=== PATIENT | male | born 1945 | race Caucasian/White ===

== ENCOUNTER → 2016-12-14 | Outpatient (CLI) | payer MEDICARE ==
[~2016-12-14] MED LIST: ALBI1INJ2 SQ; AMIO200T PO; AMLO10TA2 PO; ASPI-110 PO; ATOR10TA15 PO; COQ-100C2 PO; DOXY100C PO; GLIM4TAB PO; HYDR25TA5 PO; LACTTAB8 PO; LEVO125T4 PO; LOSA100T PO; METF-382 PO; METO25TA3 PO; METR-1 PO; MULT1TAB84 PO; NOVONP2 SQ; VICT18IN SQ
[2016-12-14 08:26] LABS: AUTOMATED NEUTROPHIL # 5.3 TH/MM3 (1.8-7.7); BASOPHIL # 0.1 TH/MM3 (0-0.2); BASOPHIL % 0.8 % (0.0-2.0); EOSINOPHIL # 0.2 TH/MM3 (0-0.4); EOSINOPHIL % 3.1 % (0.0-4.0); HEMATOCRIT 40.2 % (39.0-51.0); HEMO FLAGS DIFF FINAL; LYMPH % 17.4 % (9.0-44.0); LYMPHOCYTE # 1.3 TH/MM3 (1.0-4.8); MEAN CELL VOLUME 85.3 FL (80.0-100.0); MEAN CORPUSCULAR HEMOGLOBIN 29.4 PG (27.0-34.0); MEAN CORPUSCULAR HGB CONC 34.4 % (32.0-36.0); NEUT % 69.7 % (16.0-70.0); PLATELET COUNT 326 TH/MM3 (150-450); RED BLOOD COUNT 4.71 MIL/MM3 (4.50-5.90); RED CELL DISTRIBUTION WIDTH 13.1 % (11.6-17.2); WHITE BLOOD COUNT 7.7 TH/MM3 (4.0-11.0)
[2016-12-14 08:28] LABS: BLOOD, URINE NEG (NEG); COMMENT (UR) CULT NOT INDICATED; CULTURE IF INDICATED CULT NOT INDICATED; GLUCOSE,URINE 300 mg/dL (NEG); KETONE, URINE NEG (NEG); MUCUS URINE FEW /lpf (OCC); NITRITE,URINE NEG (NEG); PH, URINE 5.5 (5.0-8.5); SQUAMOUS EPITHELIAL CELL URINE <1 /hpf (0-5); URINE COLOR YELLOW (YELLW/STRAW)
[2016-12-14 08:59] LABS: ALKALINE PHOSPHATASE 91 U/L (45-117); ALT (GPT) 18 U/L (12-78); ANION GAP 9 MEQ/L (5-15); AST (GOT) 9 U/L (15-37); BLOOD UREA NITROGEN 28 MG/DL (7-18); CHLORIDE 102 MEQ/L (98-107); GLOMERULAR FILTRATION RATE 41 ML/MIN (>89); GLUCOSE,FASTING 191 MG/DL (74-99); POTASSIUM 3.3 MEQ/L (3.5-5.1); SODIUM (NA) 140 MEQ/L (136-145); TOTAL BILIRUBIN ADULT 0.4 MG/DL (0.2-1.0)
--- NOTE | 2016-12-14 09:17 | RADRPT ---
EXAM DATE/TIME: 12/14/2016 08:34 [facility] COMPARISON: CHEST PA & LAT, January 21, 2014, 0:49. INDICATIONS : Pre-op repair ventral hernia. Evaluate for pneumothorax, pneumonia, and communicable diseases. MEDICAL HISTORY : None. SURGICAL HISTORY : Stents 12 years ago. ENCOUNTER: Initial ACUITY: 1 day PAIN SCORE: 0/10 LOCATION: Bilateral chest FINDINGS: PA and lateral views of the chest demonstrate the lungs to be symmetrically aerated without evidence of mass, infiltrate or effusion. The cardiomediastinal contours are unremarkable. Osseous structure s are intact. CONCLUSION: Normal examination. Lazarus Baxter MD on December 14, 2016 at 9:15 Board Certified Radiologist. This report was verified electronically.
--- NOTE | 2016-12-15 11:43 | EKG ---
Date Performed: 12/14/2016 Time Performed: 07:55:26 PTAGE: 70 years EKG: Sinus rhythm WITH FIRST DEGREE AV BLOCK LOW QRS VOLTAGE IN PRECORDIAL LEADS INFERIOR MYOCARDIAL INFARCTION, PROBA BAIRON OLD ANTEROSEPTAL MYOCARDIAL INFARCTION, PROBABLY OLD ABNORMAL ECG PREVIOUS TRACING : 09/16/2016 15.58 DOCTOR: Lazarus Myers Interpretating Date/Time 12/15/2016 11:40:52
== END ==
LOC: CPRE 07:35
PROVIDERS: ATTEND Colon & Rectal Surgery
DX: Z01.810 Encounter for preprocedural cardiovascular examination (principal); Z01.811 Encounter for preprocedural respiratory examination; Z01.812 Encounter for preprocedural laboratory examination; K43.9 Ventral hernia without obstruction or gangrene
CPT/HCPCS: 36415; 71020; 80053; 81001; 85025; 93005

== ENCOUNTER → 2016-12-20 | Day surgery (SDC) | payer MEDICARE ==
[~2016-12-20] VITALS: Ht 182.9 cm; Wt 109.3 kg
[~2016-12-20] MED LIST changes: +*morphine SULFATE 8 MG/ML PERIprocedure ONLY ONE; +ACETAMINOPHEN 1000 MG/100 ML VIAL IV ONE; -ALBI1INJ2 SQ; +BUPIVACAINE/EPINEPHRINE 0.5% PF 30 ML VIAL ONE; +INSULIN HUMAN REGULAR 1,000 UNITS/10 ML VIAL SQ PRN; +LACTATED RINGER'S 1000 ML IV SCH; +LIDOCAINE 1%/EPINEPHrine 1:100,000 SOLN 30 ML VIAL ONE; +LIDOCAINE 2%/EPINEPHrine 1:100,000 30ML MDV ONE; +METOPROLOL TARTRATE 25 MG TAB PO PRN; +NEOSTIGMINE 3 MG/3 ML SYR IV ONE; +ONDANSETRON HCL 4 MG/2 ML VIAL IV PUSH ONE; +PROPOFOL 200 MG/20 ML AMP IV ONE; +SODIUM CHLORID 0.9% 500 ML IV SCH; +ceFAZolin 2 GM PREMIX 50 ML ONE; +fentaNYL CITRATE 250 MCG/5 ML AMP ONE; +oxyCODONE/ACETAMINOPHEN 5 MG/325 MG TAB ONE
--- NOTE | 2016-12-20 09:58 | PD.HP.UP ---
H&P Update Note The Pre-Admit History and Physical Examination regarding the above named patient was reviewed (including, but not limited to, vital signs, heart, lungs, co-morbid conditions), and upon re-examination it is noted that: the patient's condition has not significantly changed since the last examination. Calvin Farah MD Dec 20, 2016 09:58
[2016-12-20 12:49] VITALS: BP 151/80; PULSE 64; RESP 16; TEMP 97.9; O2SAT 99
--- NOTE | 2016-12-20 15:17 | HHI.PR ---
Immediate Post Op Note Procedure Date: Dec 20, 2016 Pre Op Diagnosis: Ventral Hernia Post Op Diagnosis: Same Surgeon: Calvin Farah Casino Banker(s): None Procedure: Exploratory laparotomy, repair ventral hernia/mesh Findings: mult ventral hernias around umbilicus Complications: None Specimen(s) removed: None Estimated blood loss: min Anesthesia: General Drains: None IVF Patient to: PACU Patient Condition: Good Calvin Farah MD Dec 20, 2016 15:17
[2016-12-20 16:05] VITALS: BP 156/78; PULSE 60; RESP 18; TEMP 97.8; O2SAT 95
--- NOTE | 2016-12-22 06:27 | MP ---
cc: PIERRE PETTIT M.D. DATE OF SURGERY 12/20/2016 PREOPERATIVE DIAGNOSIS Ventral hernia. PROCEDURE Exploratory laparotomy with repair of multiple ventral hernias with insertion of mesh. POSTOPERATIVE DIAGNOSIS Multiple ventral hernias. SURGEON Dr. Pettit PROCEDURE The patient was placed in the supine position. After adequate general anesthesia, his abdomen was prepped with Betadine solution and draped in the usual sterile fashion. Initially the previous semicircular incision above the umbilicus was reopened encountering a hernia sac in the subcu tissue. The sac was dissected free from the subcu tissue and freed down toward the neck of the fascial attachments. The sac was then opened and there were actually two or three hernias adjacent to each other. The fascial attachments between them were divided making one large hernia. The hernia sac was excised from the subcu tissue. The defect did not appear to be excessively large and exploration of the abdominal cavity revealed very few adhesions, no sign of any peritoneal disease or bowel adhesions were noted. A circular piece of double-sided hernia mesh was inserted into the peritoneal cavity and the defect closed in a transverse fashion incorporating the mesh into the closure using a running #1 PDS suture. The fascia came together quite easily without tension. The subcu tissue was then irrigated copiously with normal saline, adequate hemostasis achieved. Subcu tissue was closed in two layers using interrupted 3-0 Vicryl sutures for the deep layers and a running subcuticular Vicryl suture for the skin. The skin area was washed with normal saline and dried, sterile dressing of Telfa and gauze applied. The patient tolerated the procedure quite well and was brought to the recovery room in stable condition. Sponge and needle counts were correct at the end of the procedure. MD PEE Tristan/TAMMIE /7:30 PM /6:13 AM
== END | disposition home or self-care (01) ==
LOC: HSDC 11:47
PROVIDERS: ATTEND Colon & Rectal Surgery
DX: K43.9 Ventral hernia without obstruction or gangrene (principal); I10 Essential (primary) hypertension; I48.91 Unspecified atrial fibrillation; E11.9 Type 2 diabetes mellitus without complications
CPT/HCPCS: 00832; 49560; 49568; 82948; C1781; J0131; J0690; J2270; J2405; J2710; J3010; J7120

== ENCOUNTER 2017-02-27 16:15 | Inpatient (IN) | payer MEDICARE ==
[~2017-02-27] VITALS: Ht 182.9 cm; Wt 108.9 kg
[~2017-02-27 16:15] MED LIST changes: -*morphine SULFATE 8 MG/ML PERIprocedure ONLY ONE; -ACETAMINOPHEN 1000 MG/100 ML VIAL IV ONE; -BUPIVACAINE/EPINEPHRINE 0.5% PF 30 ML VIAL ONE; -DOXY100C PO; -INSULIN HUMAN REGULAR 1,000 UNITS/10 ML VIAL SQ PRN; -LACTATED RINGER'S 1000 ML IV SCH; -LACTTAB8 PO; -LIDOCAINE 1%/EPINEPHrine 1:100,000 SOLN 30 ML VIAL ONE; -LIDOCAINE 2%/EPINEPHrine 1:100,000 30ML MDV ONE; -METOPROLOL TARTRATE 25 MG TAB PO PRN; -METR-1 PO; -NEOSTIGMINE 3 MG/3 ML SYR IV ONE; -ONDANSETRON HCL 4 MG/2 ML VIAL IV PUSH ONE; -PROPOFOL 200 MG/20 ML AMP IV ONE; -SODIUM CHLORID 0.9% 500 ML IV SCH; -ceFAZolin 2 GM PREMIX 50 ML ONE; -fentaNYL CITRATE 250 MCG/5 ML AMP ONE; -oxyCODONE/ACETAMINOPHEN 5 MG/325 MG TAB ONE
[2017-02-27 16:20] VITALS: BP 128/75; PULSE 122; RESP 18; TEMP 103; O2SAT 95
[2017-02-27] MEDS ORDERED: ONDANSETRON HCL 4 MG/2 ML VIAL IV ONE (16:45)
[2017-02-27] MEDS ORDERED: SODIUM CHLOR 0.9% 1000 ML INJ 1,000 ML IV ONE ×2 (16:45)
[2017-02-27] MEDS ORDERED: ACETAMINOPHEN 325 MG TAB PO ONE (16:45)
--- NOTE | 2017-02-27 16:53 | PD ---
HPI Chief Complaint: GI Complaint Time Seen by Provider: 16:24 Travel History International Travel<30 days: No Contact w/Intl Traveler<30days: No Traveled to known affect area: No History of Present Illness HPI 71-year-old male is complaining of vomiting and diarrhea. Says he started getting sick this morning. After taking his victoza shot he started vomiting. He estimates he has vomited 10 times. He has also had repeated bouts of diarrhea. It started out with stool but then it became watery. He had a similar episode of months ago which he thought might of been secondary to the Victoza which has been started fairly recently. His says that he was shaking and having fever at home. He was somewhat delirious at one point. He does not recall any unusual foods. He has a history of diabetes for about 12 years. He has a history of coronary artery disease and has 3 stents. He is on amiodarone because of history of tachycardia. He had repair of a ventral hernia by Dr. Farah last month [facility] Past Medical History Hx Anticoagulant Therapy: Yes (BABY ASA DAILY) Arthritis: No Asthma: No Atrial Fibrillation: Yes Heart Rhythm Problems: No Cancer: Yes (SKIN/REMOVAL OF MELANOMA 2013, prostate) Cardiac Catheterization: Yes Cardiovascular Problems: Yes (TACHYCARDIA, HTN, CHOL) High Cholesterol: Yes Chest Pain: No Congestive Heart Failure: No COPD: No Cerebrovascular Accident: No Diabetes: Yes Patient Takes Glucophage: No Diminished Hearing: No Endocrine: Yes Gastrointestinal Disorders: No GERD: Yes Genitourinary: Yes (PROSTATE REMOVED) Headaches: No Hepatitis: No Hiatal Hernia: No Hypertension: Yes Immune Disorder: No Kidney Stones: No Musculoskeletal: Yes (L5-S1 FUSION, RIGHT INDEX FINGER AMPUTATION ) Neurologic: No Psychiatric: No Reproductive: No Respiratory: Yes (SLEEP APNEA-USES CPAP) Immunizations Current: Yes Migraines: No Myocardial Infarction: No Renal Failure: No Seizures: No Sleep Apnea: Yes (PT HAS CPAP MACHINE FOR NIGHT TIME ) Thyroid Disease: Yes (HYPOTYHROIDISM) Ulcer: No Past Surgical History Abdominal Surgery: No AICD: No Appendectomy: No Body Medical Devices: CARDIAC STENTS X 3 Cardiac Surgery: No Cholecystectomy: No Coronary Stent: Yes (X2) Ear Surgery: No Endocrine Surgery: No Eye Surgery: Yes (CATARACTS REMOVED) Genitourinary Surgery: Yes (PROSTATE REMOVED) Gynecologic Surgery: No Joint Replacement: No Neurologic Surgery: No Oral Surgery: Yes (T/A) Pacemaker: No Prostatectomy: Yes Thoracic Surgery: No Tonsillectomy: Yes (W/ADNOIDECTOMY) Other Surgery: Yes (melanoma and other skin cancers removed) Social History Alcohol Use: Yes (ONCE EVERY 2 MONTHS) Tobacco Use: No (QUIT 50YRS AGO) Substance Use: No Allergies-Medications (Allergen,Severity, Reaction): Coded Allergies: No Known Allergies (Verified , 02/27/17) Reported Meds & Prescriptions Reported Meds & Active Scripts Active Reported Victoza Inj (Liraglutide Inj) 18 Mg/3 Ml Pen 1.8 Mg SQ DAILY Coq-10 (Coenzyme Q10 (Ubidecarenone)) 100 Mg Cap 100 Mg PO DAILY Multivitamin Adults (Multiple Vitamins W/ Minerals) 1 Tab 1 Tab PO DAILY Aspirin 81 (Aspirin) 81 Mg Tabdr 81 Mg PO DAILY Hydrochlorothiazide 25 Mg Tab 25 Mg PO HS Glimepiride 4 Mg Tab 4 Mg PO BIDAC Amiodarone (Amiodarone HCl) 200 Mg Tab 200 Mg PO DAILY Losartan (Losartan Potassium) 100 Mg Tab 100 Mg PO DAILY Levothyroxine (Levothyroxine Sodium) 125 Mcg Tab 125 Mcg PO DAILY Amlodipine (Amlodipine Besylate) 10 Mg Tab 10 Mg PO DAILY Metoprolol Tartrate 25 Mg Tab 25 Mg PO BID Atorvastatin (Atorvastatin Calcium) 10 Mg Tab 10 Mg PO HS Metformin ER (Metformin HCl) 1,000 Mg León 1,000 Mg PO BID With evening meal Novolin N Inj (Insulin Human NPH) 1,000 Unit/10 Ml Vial 16 Units SQ HS Review of Systems General / Constitutional: Positive: Fever, Chills Eyes: No: Diploplia, Blurred Vision HENT: No: Headaches, Vertigo Cardiovascular: Positive: Tachycardia, No: Chest Pain or Discomfort, Palpitations Respiratory: No: Cough, Shortness of Breath Gastrointestinal: Positive: Nausea, Vomiting, Diarrhea, No: Abdominal Pain Genitourinary: No: Frequency Musculoskeletal: No: Myalgias, Arthralgias Skin: No Rash Endocrine: No: Heat Intolerance, Cold Intolerance Hematologic/Lymphatic: No: Easy Bruising Physical Exam Exam Limitations: Psychotic Narrative GENERAL: Temp is initially 103 with pulse rate of 122. He is a well-developed male SKIN: Focused skin assessment warm/dry. HEAD: Atraumatic. Normocephalic. EYES: Pupils equal and round. No scleral icterus. No injection or drainage. ENT: No nasal bleeding or discharge. Mucous membranes pink and moist. NECK: Trachea midline. No JVD. CARDIOVASCULAR: Regular rate and rhythm. No murmur appreciated. RESPIRATORY: No accessory muscle use. Clear to auscultation. Breath sounds equal bilaterally. GASTROINTESTINAL: Abdomen soft, non-tender, nondistended. Hepatic and splenic margins not palpable. MUSCULOSKELETAL: No obvious deformities. No clubbing. No cyanosis. No edema. NEUROLOGICAL: Awake and alert. No obvious cranial nerve deficits. Motor grossly within normal limits. Normal speech. PSYCHIATRIC: Appropriate mood and affect; insight and judgment normal. Data Data Last Documented VS Vital Signs Date Time Temp Pulse Resp B/P Pulse Ox O2 Delivery O2 Flow Rate FiO2 02/27/17 17:22 91 Nasal Cannula 2 02/27/17 17:18 101.6 106 18 144/66 Orders Complete Blood Count With Diff (02/27/17 16:43) Comprehensive Metabolic Panel (02/27/17 16:43) Lactic Acid Sepsis Protocol (02/27/17 16:43) Urinalysis - C+S If Indicated (02/27/17 16:43) Blood Culture (02/27/17 16:43) Blood Glucose (02/27/17 16:43) Ecg Monitoring (02/27/17 16:43) Iv Access Insert/Monitor (02/27/17 16:43) Oximetry (02/27/17 16:43) Oxygen Administration (02/27/17 16:43) Acetaminophen (Tylenol) (02/27/17 16:45) Ondansetron Inj (Zofran Inj) (02/27/17 16:45) Sodium Chlor 0.9% 1000 Ml Inj (Ns 1000 M (02/27/17 16:45) Sodium Chlor 0.9% 1000 Ml Inj (Ns 1000 M (02/27/17 16:45) Acetaminophen (Tylenol) (02/27/17 17:15) Piperacil-Tazo 4.5 Gm Premix (Zosyn 4.5 (02/27/17 17:53) Labs Laboratory Tests Test 02/27/17 02/27/17 16:55 17:14 White Blood Count 14.6 TH/MM3 Red Blood Count 5.08 MIL/MM3 Hemoglobin 14.6 GM/DL Hematocrit 43.4 % Mean Corpuscular Volume 85.4 FL Mean Corpuscular Hemoglobin 28.8 PG Mean Corpuscular Hemoglobin 33.7 % Concent Red Cell Distribution Width 13.4 % Platelet Count 306 TH/MM3 Mean Platelet Volume 7.8 FL Neutrophils (%) (Auto) 92.2 % Lymphocytes (%) (Auto) 1.4 % Monocytes (%) (Auto) 4.5 % Eosinophils (%) (Auto) 0.2 % Basophils (%) (Auto) 1.7 % Neutrophils # (Auto) 13.5 TH/MM3 Lymphocytes # (Auto) 0.2 TH/MM3 Monocytes # (Auto) 0.7 TH/MM3 Eosinophils # (Auto) 0.0 TH/MM3 Basophils # (Auto) 0.2 TH/MM3 CBC Comment DIFF FINAL Differential Comment Sodium Level 141 MEQ/L Potassium Level 3.3 MEQ/L Chloride Level 104 MEQ/L Carbon Dioxide Level 23.8 MEQ/L Anion Gap 13 MEQ/L Blood Urea Nitrogen 43 MG/DL Creatinine 1.50 MG/DL Estimat Glomerular Filtration 46 ML/MIN Rate Random Glucose 249 MG/DL Lactic Acid Level 2.1 mmol/L Calcium Level 8.6 MG/DL Total Bilirubin 0.6 MG/DL Aspartate Amino Transf 14 U/L (AST/SGOT) Alanine Aminotransferase 18 U/L (ALT/SGPT) Alkaline Phosphatase 63 U/L Total Protein 7.0 GM/DL Albumin 3.7 GM/DL Urine Collection Type CATH Urine Color YELLOW Urine Turbidity CLEAR Urine pH 5.5 Urine Specific [place] 1.030 Urine Protein TRACE mg/dL Urine Glucose (UA) 1000 OR GREATER mg/dL Urine Ketones 40 mg/dL Urine Occult Blood NEG Urine Nitrite NEG Urine Bilirubin NEG Urine Leukocyte Esterase NEG Urine Amorphous Sediment FEW Microscopic Urinalysis Comment CULT NOT INDICATED MDM Medical Decision Making Medical Screen Exam Complete: Yes Emergency Medical Condition: Yes Medical Record Reviewed: Yes Differential Diagnosis Differential includes gastroenteritis, food poisoning, sepsis Narrative Course Patient has been given IV fluids and Zofran feels a bit better. His hemoglobin is 14.6 with a white count of 14.6. there are 92% polys. His potassium is 3.3. Lactic acid is 2.1. His BUNs is 43 with creatinine of 1.5. Urinalysis shows large amount of blood. Patient has been been continued on fluids. Sepsis Criteria SIRS Criteria (2 or more): Temp > 100.9 or < 96.8, Heart rate over 90, WBC > 86556, < 4000 or > 10% bands Sepsis Criteria (SIRS+source): Infect source susp/known Severe Sepsis (+one): Lactate >2 Criteria Outcome: Meets severe sepsis criteria Diagnosis Primary Impression: Sepsis Meir Butler MD February 27, 2017 16:53
[2017-02-27 17:01] LABS: AUTOMATED NEUTROPHIL # 13.5 TH/MM3 (1.8-7.7); BASOPHIL # 0.2 TH/MM3 (0-0.2); BASOPHIL % 1.7 % (0.0-2.0); EOSINOPHIL % 0.2 % (0.0-4.0); HEMATOCRIT 43.4 % (39.0-51.0); LYMPH % 1.4 % (9.0-44.0); LYMPHOCYTE # 0.2 TH/MM3 (1.0-4.8); MEAN CELL VOLUME 85.4 FL (80.0-100.0); MEAN CORPUSCULAR HEMOGLOBIN 28.8 PG (27.0-34.0); MEAN CORPUSCULAR HGB CONC 33.7 % (32.0-36.0); MONO % 4.5 % (0.0-8.0); NEUT % 92.2 % (16.0-70.0); PLATELET COUNT 306 TH/MM3 (150-450); RED BLOOD COUNT 5.08 MIL/MM3 (4.50-5.90); RED CELL DISTRIBUTION WIDTH 13.4 % (11.6-17.2); WHITE BLOOD COUNT 14.6 TH/MM3 (4.0-11.0)
[2017-02-27 17:06] LABS: HEMO FLAGS DIFF FINAL
[2017-02-27 17:11] LABS: CHLORIDE 104 MEQ/L (98-107); POTASSIUM 3.3 MEQ/L (3.5-5.1); SODIUM (NA) 141 MEQ/L (136-145)
[2017-02-27 17:14] LABS: ANION GAP 13 MEQ/L (5-15); BICARBONATE 23.8 MEQ/L (21.0-32.0)
[2017-02-27 17:15] LABS: BLOOD UREA NITROGEN 43 MG/DL (7-18)
[2017-02-27] MEDS ORDERED: ACETAMINOPHEN 500 MG CPLT PO ONE (17:15)
[2017-02-27 17:16] VITALS: O2SAT 98
[2017-02-27 17:18] VITALS: BP 144/66; PULSE 106; RESP 18; TEMP 101.6; O2SAT 91; O2SAT 97
[2017-02-27 17:18] LABS: BLOOD, URINE NEG (NEG); GLUCOSE,URINE 1000 OR GREATER mg/dL (NEG); KETONE, URINE 40 mg/dL (NEG); NITRITE,URINE NEG (NEG); PH, URINE 5.5 (5.0-8.5)
[2017-02-27 17:18] LABS: ALT (GPT) 18 U/L (12-78); AST (GOT) 14 U/L (15-37); GLOMERULAR FILTRATION RATE 46 ML/MIN (>89)
[2017-02-27 17:19] LABS: TOTAL BILIRUBIN ADULT 0.6 MG/DL (0.2-1.0)
[2017-02-27 17:19] LABS: METHOD OF COLLECTION CATH; URINE COLOR YELLOW (YELLW/STRAW)
[2017-02-27 17:20] LABS: ALKALINE PHOSPHATASE 63 U/L (45-117)
[2017-02-27 17:23] LABS: COMMENT (UR) CULT NOT INDICATED; CULTURE IF INDICATED CULT NOT INDICATED
[2017-02-27] MEDS ORDERED: PIPERACIL-TAZO 4.5 GM PREMIX 100 ML IV STA (17:53)
[2017-02-27 18:00] VITALS: O2SAT 91
[2017-02-27] MEDS ORDERED: NS + KCL 40 MEQ INJ 1,000 ML IV ONE (18:15)
[2017-02-27] MEDS ORDERED: ONDANSETRON HCL 4 MG/2 ML VIAL IV PRN (18:15)
[2017-02-27] MEDS ORDERED: GLUCAGON 1 MG/ML VIAL OTHER PRN (18:30)
[2017-02-27] MEDS ORDERED: DEXTROSE 50% IN WATER 50 ML VIAL(D50) IV PUSH PRN (18:30)
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
--- NOTE | 2017-02-27 18:52 | RADHPO ---
EXAM DATE/TIME: 02/27/2017 18:23 [facility] COMPARISON: No previous studies available for comparison. INDICATIONS : Nausea, vomiting and diarrhea. Recent ventral hernia repair. ORAL CONTRAST: No oral contrast ingested. RADIATION DOSE: 20.47 CTDIvol (mGy) MEDICAL HISTORY : Cardiovascular disease. Hypertension. Carcinoma, prostate.Diabetes. SURGICAL HISTORY : Prostatectomy. Coronary artery stent.Ventral hernia repair. ENCOUNTER: Initial ACUITY: 1 day PAIN SCALE: 0/10 LOCATION: abdomen/pelvis TECHNIQUE: Volumetric scanning of the abdomen and pelvis was performed. Using automated exposure control and ad justment of the mA and/or kV according to patient size, radiation dose was kept as low as reasonably achievable to obtain optimal diagnostic quality images. FINDINGS: The lung base is are clear. Trace pericardial effusion is noted. Several small low-density lesions are present in the liver incompletely evaluated on this noncontrast exam. The spleen, pancreas and adrenal glands are unremarkable. Right kidney: There is an 1 cm nonobstructing stone in the upper pole of the right kidney. There are no calcificat ions along the expected course of the right ureter. Left kidney there are 2 apparent cyst projected from the left kidney, one measuring 2.3 cm. The othe r in the upper pole measuring 1.7 cm. There is no intracranial adenopathy Evidence for ventral hernia repair is noted In the pelvis there are no diverticuli. Bladder prostate and seminal vesicles unremarkable Moderate vascular calcifications are evident. CONCLUSION: 1. Nonobstructing right renal stone with scattered low density lesions in the liver, incompletely ev aluated 2. I do not see knee other inflammatory change is evident 3. Postsurgical changes are seen about the dental repair 4. The gallbladder appears unremarkable. Brian Arias MD FACR on February 27, 2017 at 18:44 Board Certified Radiologist. This report was verified electronically.
[2017-02-27 18:57] LABS: LACTIC ACID GHOST NOT REPORTABLE
[2017-02-27] MEDS: NS + KCL 20 MEQ INJ 1,000 ML IV SCH (19:09)
[2017-02-27 19:18] VITALS: BP 127/66; PULSE 91; RESP 18; TEMP 99.6; O2SAT 97
[2017-02-27 20:19] VITALS: O2SAT 94
[2017-02-27] MEDS: INSULIN NovoLIN REGULAR SUPPLEMENTAL SCALE SQ SCH (21:00)
[2017-02-27] MEDS: METOPROLOL TARTRATE 25 MG TAB PO SCH (21:40)
[2017-02-27] MEDS: ATORVASTATIN 10 MG TAB PO SCH (21:40)
[2017-02-27] MEDS: PIPERACIL-TAZO 4.5 GM PREMIX 100 ML IV SCH (23:57)
[2017-02-28] VITALS: BP 98/56; PULSE 62; RESP 16; TEMP 97.1; O2SAT 98
[2017-02-28] MEDS: NS + KCL 20 MEQ INJ 1,000 ML IV SCH ×3 (05:22→23:40)
[2017-02-28] MEDS: LEVOTHYROXINE SODIUM 125 MCG TAB PO SCH (05:26)
[2017-02-28] MEDS: PIPERACIL-TAZO 4.5 GM PREMIX 100 ML IV SCH ×4 (05:27→23:39)
[2017-02-28] MEDS: INSULIN NovoLIN REGULAR SUPPLEMENTAL SCALE SQ SCH ×4 (07:00→22:14)
[2017-02-28 07:58] LABS: AUTOMATED NEUTROPHIL # 9.5 TH/MM3 (1.8-7.7); BASOPHIL % 0.4 % (0.0-2.0); EOSINOPHIL # 0.1 TH/MM3 (0-0.4); EOSINOPHIL % 1.3 % (0.0-4.0); LYMPH % 4.2 % (9.0-44.0); LYMPHOCYTE # 0.4 TH/MM3 (1.0-4.8); MEAN CELL VOLUME 86.7 FL (80.0-100.0); MEAN CORPUSCULAR HEMOGLOBIN 27.8 PG (27.0-34.0); MEAN CORPUSCULAR HGB CONC 32.1 % (32.0-36.0); MONO % 5.8 % (0.0-8.0); NEUT % 88.3 % (16.0-70.0); PLATELET COUNT 264 TH/MM3 (150-450); RED BLOOD COUNT 4.26 MIL/MM3 (4.50-5.90); RED CELL DISTRIBUTION WIDTH 13.4 % (11.6-17.2); WHITE BLOOD COUNT 10.6 TH/MM3 (4.0-11.0)
[2017-02-28 08:00] VITALS: BP 106/55; PULSE 64; RESP 18; TEMP 97.7; O2SAT 100
[2017-02-28 08:02] LABS: HEMO FLAGS DIFF FINAL
[2017-02-28 08:07] LABS: POTASSIUM 3.6 MEQ/L (3.5-5.1)
[2017-02-28 08:25] LABS: BICARBONATE 30.2 MEQ/L (21.0-32.0); CALCIUM-PROTEIN CORRECTED 8.3 MG/DL (8.5-10.1); TOTAL BILIRUBIN ADULT 0.6 MG/DL (0.2-1.0)
[2017-02-28] MEDS: ASPIRIN EC 81 MG TABEC PO SCH (09:51)
[2017-02-28] MEDS: AMIODARONE 200 MG TAB PO SCH (09:52)
[2017-02-28] MEDS: METOPROLOL TARTRATE 25 MG TAB PO SCH ×2 (09:52→21:41)
[2017-02-28] MEDS: LOSARTAN 50 MG TAB PO SCH (09:53)
--- NOTE | 2017-02-28 11:51 | HHI.PR ---
Subjective Remarks Patient resting comfortably in bed today No fever overnight no abdominal pain no nausea or vomiting no bowel movement, WBC resolved and fever lactic acidosis as well His hemoglobin dropped significantly more than 3 g today mostly infarct was due to iv hydration and dilution effect, patient stated his last colonoscopy was 3 years ago that showed diverticulosis but no mentioning of polyps Will check his iron panel, occult blood, and consider GI consult if needed Objective Vitals Vital Signs Date Time Temp Pulse Resp B/P Pulse Ox O2 Delivery O2 Flow Rate FiO2 02/28/17 08:00 Nasal Cannula 2.00 02/28/17 08:00 97.7 64 18 106/55 100 02/28/17 00:00 97.1 62 16 98/56 98 02/27/17 20:19 94 Nasal Cannula 2.00 02/27/17 19:45 18 97 Nasal Cannula 2 02/27/17 19:18 99.6 91 18 127/66 97 Nasal Cannula 2 02/27/17 19:18 18 02/27/17 18:00 91 Nasal Cannula 2.00 02/27/17 17:22 91 Nasal Cannula 2 02/27/17 17:18 101.6 106 18 144/66 91 Room Air 02/27/17 17:16 98 Room Air 02/27/17 16:20 103.0 122 18 128/75 95 I/O 02/27/17 02/27/17 02/27/17 02/28/17 02/28/17 02/28/17 07:00 15:00 23:00 07:00 15:00 23:00 Intake Total 4100 ml 1338 ml Output Total 350 ml Balance 4100 ml 988 ml Intake Oral 0 ml 80 ml IV Total 4100 ml 1258 ml Output Urine Total 350 ml # Voids 0 0 # Bowel Movements 0 0 Result Diagram: 02/28/17 0740 02/28/17 0740 Imaging Last Impressions Abdomen/Pelvis CT 02/27/17 1800 Signed Impressions: Service Date/Time: Monday, February 27, 2017 18:23 - CONCLUSION: 1. Nonobstructing right renal stone with scattered low density lesions in the liver, incompletely evaluated 2. I do not see knee other inflammatory change is evident 3. Postsurgical changes are seen about the dental repair 4. The gallbladder appears unremarkable. Brian Arias MD FACR Objective Remarks GENERAL: This is a well-nourished, well-developed patient, in no apparent distress. SKIN: No rashes, warm and dry HEAD: Atraumatic. Normocephalic. EYES: Pupils equal round and reactive. Extraocular motions intact. No scleral icterus. ENT: Nose without bleeding, or drainage, Airway patent. NECK: Trachea midline. Supple CARDIOVASCULAR: Regular rate and rhythm without murmurs, gallops, or rubs. RESPIRATORY: Fair air entry bilaterally. No wheezes, rales, or rhonchi. GASTROINTESTINAL: Abdomen soft, non-tender, nondistended. Positive bowel sounds MUSCULOSKELETAL: Extremities without clubbing, cyanosis, or edema. Pedal pulses appreciated NEUROLOGICAL: Awake and alert. Moves all extremity. Normal speech.no focal neurological deficit A/P Assessment and Plan 71 years old male with history of coronary artery disease with stenting, hyperlipidemia, diabetes mellitus came with acute episode of Sepsis ( with fever of 103, tachycardia, leukocytosis, left shift, lactic acidosis)> resolved C diff diarrhea with Acute episode of nausea vomiting with sepsis Lactic acidosis 2.1 > resolved Hypokalemia> resolved Leukocytosis 14,000 with left shift> resolved Acute versus chronic Anemia> ? Dilution effect, will check iron panel and occult blood, will consider GI consult Chronic kidney disease stage III H/O tachycardia patient on Lopressor and amiodarone History of coronary artery disease status post stenting diabetes mellitus on glimepiride/insulin and Victoza, metformin History of melanoma prostate cancer Hyperlipidemia on statin DVT prophylaxis Plan: change zosyn to flagyl po tid Advance diet to full liquid and healthy heart diet as tolerated Iron panel, occult blood, consider GI consult for anemia Blood sugar reviewed continue Accu-Chek with insulin sliding scale only at this point CT abdomen reviewed by me show Showed nonobstructing right renal stone low scattered density lesion in the liver, no inflammatory changes Patient received 2 L of saline in ED, we will continue on maintenance with 20 Natali Q of potassium Repeat lactic acid to make sure it goes to normal limit Hold on metformin and Victoza and glimepiride, cover with insulin sliding scale while nothing by mouth Resume home meds including aspirin Plavix, statin, lisinopril, hold on HCTZ due to lactic acidosis Continue on amiodarone and Lopressor patient heart rate is in the 120s mostly worsened due to sepsis Culture sent we will follow SCD and heparin for DVT prophylaxis Discharge Planning When improved Avtar Nunez MD February 28, 2017 11:51
[2017-02-28 12:00] VITALS: BP 111/59; PULSE 64; RESP 18; TEMP 97.6; O2SAT 97
[2017-02-28 13:30] LABS: FERRITIN 103 NG/ML (26-388); TRANSFERRIN IRON PROFILE 166 MG/DL (200-360)
[2017-02-28 16:00] VITALS: BP 134/67; PULSE 73; RESP 20; TEMP 98.4; O2SAT 90
[2017-02-28 17:01] LABS: C. DIFF EPI 027 PRESUMPTIVE NEGATIVE (NEGATIVE)
[2017-02-28 17:15] LABS: C. DIFF TOXIN PCR POSITIVE (NEGATIVE)
[2017-02-28] MEDS: metroNIDAZOLE 500 MG TAB PO SCH ×2 (17:49→21:41)
[2017-02-28 20:00] VITALS: BP 136/73; PULSE 70; RESP 20; TEMP 98.7; O2SAT 92; O2SAT 98
[2017-02-28] MEDS: ATORVASTATIN 10 MG TAB PO SCH (21:41)
[2017-03-01] VITALS: BP 141/75; PULSE 73; RESP 18; TEMP 99.3; O2SAT 97
--- NOTE | 2017-03-01 00:40 | RADHPO ---
EXAM DATE/TIME: 03/01/2017 00:29 [facility] COMPARISON: CHEST PA & LAT, January 21, 2014, 0:49. INDICATIONS : Chest pain. MEDICAL HISTORY : Cardiovascular disease. Diabetes mellitus type I. SURGICAL HISTORY : Prostatectomy. cardiac stents hernia repair ENCOUNTER: Initial ACUITY: 1 day PAIN SCORE: 7/10 LOCATION: Bilateral upper chest FINDINGS: A single view of the chest demonstrates the lungs to be symmetrically aerated without evidence of mas s, infiltrate or effusion. The cardiomediastinal contours are unremarkable. Osseous structures are intact. CONCLUSION: No acute disease. Tate Russell MD on March 01, 2017 at 0:38 Board Certified Radiologist. This report was verified electronically.
[2017-03-01] MEDS ORDERED: SIMETHICONE 125 MG CHEWABLE TAB PO ONE (05:15)
[2017-03-01] MEDS: LEVOTHYROXINE SODIUM 125 MCG TAB PO SCH (05:35)
[2017-03-01] MEDS: metroNIDAZOLE 500 MG TAB PO SCH ×3 (05:35→21:35)
[2017-03-01] MEDS: PIPERACIL-TAZO 4.5 GM PREMIX 100 ML IV SCH ×5 (05:47→23:52)
[2017-03-01] MEDS: INSULIN NovoLIN REGULAR SUPPLEMENTAL SCALE SQ SCH ×4 (07:00→21:41)
[2017-03-01 08:00] VITALS: BP 146/76; PULSE 74; RESP 21; TEMP 99.5; O2SAT 95
[2017-03-01] MEDS: ASPIRIN EC 81 MG TABEC PO SCH (10:03)
[2017-03-01] MEDS: LOSARTAN 50 MG TAB PO SCH (10:03)
[2017-03-01] MEDS: METOPROLOL TARTRATE 25 MG TAB PO SCH ×2 (10:03→21:35)
[2017-03-01] MEDS: AMIODARONE 200 MG TAB PO SCH (10:04)
[2017-03-01] MEDS: NS + KCL 20 MEQ INJ 1,000 ML IV SCH (10:04)
[2017-03-01 11:54] VITALS: BP 144/85; PULSE 69; RESP 20; TEMP 98.3; O2SAT 94
[2017-03-01] MEDS: SIMETHICONE 80 MG CHEWABLE TAB CHEW PRN ×3 (12:39→21:41)
[2017-03-01 13:36] LABS: POTASSIUM 3.9 MEQ/L (3.5-5.1)
[2017-03-01 14:36] LABS: BICARBONATE 27.4 MEQ/L (21.0-32.0)
[2017-03-01 16:00] VITALS: BP 147/81; PULSE 74; RESP 19; TEMP 96.9; O2SAT 95
--- NOTE | 2017-03-01 17:58 | HHI.PR ---
Subjective Remarks patient reported no abdominal discomfort, no nausea or vomiting no fever overnight Stool came back positive for C. difficile, he is able to tolerate liquid we will DC IV fluid Objective Vitals Vital Signs Date Time Temp Pulse Resp B/P Pulse Ox O2 Delivery O2 Flow Rate FiO2 03/01/17 16:00 96.9 74 19 147/81 95 03/01/17 12:05 Nasal Cannula 2.00 03/01/17 11:54 98.3 69 20 144/85 94 03/01/17 08:00 99.5 74 21 146/76 95 03/01/17 00:00 99.3 73 18 141/75 97 02/28/17 20:01 Nasal Cannula 2.00 02/28/17 20:00 92 21 02/28/17 20:00 98.7 70 20 136/73 98 I/O 02/28/17 02/28/17 02/28/17 03/01/17 03/01/17 03/01/17 07:00 15:00 23:00 07:00 15:00 23:00 Intake Total 1338 ml 1290 ml 1680 ml Output Total 350 ml 600 ml 700 ml Balance 988 ml 690 ml 980 ml Intake Oral 80 ml 1290 ml 480 ml IV Total 1258 ml 1200 ml Output Urine Total 350 ml 600 ml 700 ml # Voids 0 # Bowel Movements 0 1 0 Result Diagram: 02/28/17 0740 03/01/17 1321 Objective Remarks GENERAL: This is a well-nourished, well-developed patient, in no apparent distress. SKIN: No rashes, warm and dry HEAD: Atraumatic. Normocephalic. EYES: Pupils equal round and reactive. Extraocular motions intact. No scleral icterus. ENT: Nose without bleeding, or drainage, Airway patent. NECK: Trachea midline. Supple CARDIOVASCULAR: Regular rate and rhythm without murmurs, gallops, or rubs. RESPIRATORY: Fair air entry bilaterally. No wheezes, rales, or rhonchi. GASTROINTESTINAL: Abdomen soft, non-tender, nondistended. Positive bowel sounds MUSCULOSKELETAL: Extremities without clubbing, cyanosis, or edema. Pedal pulses appreciated NEUROLOGICAL: Awake and alert. Moves all extremity. Normal speech.no focal neurological deficit A/P Assessment and Plan 71 years old male with history of coronary artery disease with stenting, hyperlipidemia, diabetes mellitus came with acute episode of Sepsis ( with fever of 103, tachycardia, leukocytosis, left shift, lactic acidosis)> resolved C diff diarrhea with Acute episode of nausea vomiting with sepsis Lactic acidosis 2.1 > resolved Hypokalemia> resolved Leukocytosis 14,000 with left shift> resolved Acute versus chronic Anemia> ? Dilution effect, iron panel and occult blood reviewed Chronic kidney disease stage III H/O tachycardia patient on Lopressor and amiodarone History of coronary artery disease status post stenting diabetes mellitus on glimepiride/insulin and Victoza, metformin History of melanoma prostate cancer Hyperlipidemia on statin DVT prophylaxis Plan: change zosyn to flagyl po tid Advance diet to healthy heart diet as tolerated, DC IV fluid Iron panelshowed low iron and low TIBC, low transferring, low-normal ferritin, occult blood negative Blood sugar reviewed continue Accu-Chek with insulin sliding scale only at this point CT abdomen reviewed by me show Showed nonobstructing right renal stone low scattered density lesion in the liver, no inflammatory changes Patient received 2 L of saline in ED, we will continue on maintenance with 20 Natali Q of potassium Repeat lactic acid to make sure it goes to normal limit Hold on metformin and Victoza and glimepiride, cover with insulin sliding scale while nothing by mouth Resume home meds including aspirin Plavix, statin, lisinopril, hold on HCTZ due to lactic acidosis Continue on amiodarone and Lopressor patient heart rate is in the 120s mostly worsened due to sepsis Culture sent we will follow SCD and heparin for DVT prophylaxis Discharge Planning When improved Avtar Nunez MD March 01, 2017 17:58
[2017-03-01 20:00] VITALS: BP 166/84; PULSE 87; RESP 20; TEMP 102.2; O2SAT 90
[2017-03-01] MEDS ORDERED: ACETAMINOPHEN 325 MG TAB PO ONE (20:45)
[2017-03-01] MEDS ORDERED: RESP: ALBUTEROL 2.5 MG/IPRATROPIUM 0.5 MG NEB (SCH) NEB ONE (20:45)
[2017-03-01 21:00] VITALS: O2SAT 92
[2017-03-01] MEDS: ATORVASTATIN 10 MG TAB PO SCH (21:35)
--- NOTE | 2017-03-01 21:38 | RADHPO ---
EXAM DATE/TIME: 03/01/2017 20:41 [facility] COMPARISON: CHEST SINGLE AP, March 01, 2017, 0:29. INDICATIONS : Congestion. Productive cough. MEDICAL HISTORY : Cardiovascular disease. Diabetes mellitus type I. SURGICAL HISTORY : Cardiac stents. ENCOUNTER: Subsequent ACUITY: 1 day PAIN SCORE: 0/10 LOCATION: Bilateral chest FINDINGS: There is airspace disease in the right upper lobe most characteristic of a bronchopneumonia. Mild rig ht and left basilar opacity also present. No significant effusion. No pneumothorax. CONCLUSION: 1. Patchy airspace disease in the right lung most characteristic of a bronchopneumonia. Adam Becerril MD on March 01, 2017 at 21:13 Board Certified Radiologist. This report was verified electronically.
[2017-03-01] MEDS ORDERED: RESP: ALBUTEROL 2.5 MG/IPRATROPIUM 0.5 MG NEB (PRN) NEB (22:15)
[2017-03-01] MEDS ORDERED: LEVOFLOXACIN 750 MG PREMIX INJ 150 ML IV SCH (23:00)
[2017-03-02] VITALS (8 sets, daily range): BP systolic 133–161; BP diastolic 71–82; PULSE 70–86; RESP 18–22; TEMP 97.5–101.2; O2SAT 91–92
[2017-03-02] MEDS: RESP: ALBUTEROL 2.5 MG/IPRATROPIUM 0.5 MG NEB (SCH) NEB ×4 (04:00→21:18)
[2017-03-02] MEDS: PIPERACIL-TAZO 4.5 GM PREMIX 100 ML IV SCH (05:54)
[2017-03-02] MEDS: metroNIDAZOLE 500 MG TAB PO SCH ×3 (05:54→21:34)
[2017-03-02] MEDS: LEVOTHYROXINE SODIUM 125 MCG TAB PO SCH (05:54)
[2017-03-02 06:54] LABS: POTASSIUM 3.9 MEQ/L (3.5-5.1)
[2017-03-02 06:58] LABS: BICARBONATE 26.2 MEQ/L (21.0-32.0)
[2017-03-02] MEDS: METOPROLOL TARTRATE 25 MG TAB PO SCH ×2 (08:44→21:34)
[2017-03-02] MEDS: ASPIRIN EC 81 MG TABEC PO SCH (08:44)
[2017-03-02] MEDS: AMIODARONE 200 MG TAB PO SCH (08:44)
[2017-03-02] MEDS: LOSARTAN 50 MG TAB PO SCH (08:44)
[2017-03-02] MEDS: INSULIN NovoLIN REGULAR SUPPLEMENTAL SCALE SQ SCH ×3 (08:50→18:16)
[2017-03-02] MEDS ORDERED: ACETAMIN 325 MG/BUTALBITAL 50 MG/CAFFEINE 40 MG TAB PO ONE (11:00)
--- NOTE | 2017-03-02 11:09 | HHI.PR ---
Subjective Remarks Fever overnight. Tmax is 102.2F. Diarrhea is improved, now has soft stools. No new complaints. Latest chest x-ray shows no pneumonia. A bleb may be present given a history of recurrent but infrequent coughing up of a sputum bolus with occasional blood. Prior finding, concerning for pneumonia, is not seen on follow up x-ray (on the same day). Objective Vital Signs Date Time Temp Pulse Resp B/P Pulse Ox O2 Delivery O2 Flow Rate FiO2 03/02/17 09:45 92 Nasal Cannula 3.00 03/02/17 09:08 97.5 82 18 157/77 92 03/02/17 01:29 97.8 03/02/17 00:00 100.1 70 20 133/71 91 03/01/17 21:00 92 Nasal Cannula 3.00 03/01/17 20:00 102.2 87 20 166/84 90 03/01/17 16:00 96.9 74 19 147/81 95 03/01/17 12:05 Nasal Cannula 2.00 03/01/17 11:54 98.3 69 20 144/85 94 I/O 03/01/17 03/01/17 03/01/17 03/02/17 03/02/17 03/02/17 07:00 15:00 23:00 07:00 15:00 23:00 Intake Total 1680 ml 480 ml 365 ml Output Total 700 ml 200 ml 400 ml Balance 980 ml 280 ml -35 ml Intake Oral 480 ml 480 ml 365 ml IV Total 1200 ml Output Urine Total 700 ml 200 ml 400 ml # Bowel Movements 0 1 Result Diagram: 02/28/17 0740 03/02/17 0630 Imaging Last Impressions Chest X-Ray 03/01/17 0014 Signed Impressions: Service Date/Time: Wednesday, March 01, 2017 00:29 - CONCLUSION: No acute disease. Tate Russell MD Abdomen/Pelvis CT 02/27/17 1800 Signed Impressions: Service Date/Time: Monday, February 27, 2017 18:23 - CONCLUSION: 1. Nonobstructing right renal stone with scattered low density lesions in the liver, incompletely evaluated 2. I do not see knee other inflammatory change is evident 3. Postsurgical changes are seen about the dental repair 4. The gallbladder appears unremarkable. Brian Arias MD FACR Objective Remarks GENERAL: NAD, A&Ox3 SKIN: Warm and dry. HEAD: Normocephalic. EYES: No scleral icterus. No injection or drainage. NECK: Supple, trachea midline. No JVD or lymphadenopathy. CARDIOVASCULAR: Regular rate and rhythm without murmurs, gallops, or rubs. RESPIRATORY: Breath sounds equal bilaterally. No accessory muscle use. GASTROINTESTINAL: Abdomen soft, non-tender, nondistended. MUSCULOSKELETAL: No cyanosis, or edema. BACK: Nontender without obvious deformity. No CVA tenderness. Medications and IVs Administered Medications Medications (Trade) Dose Ordered Sig/Arie Route PRN Reason Start Time Stop Time Status Last Admin Dose Admin Piperacillin Sod/ Tazobactam Sod (Zosyn 4.5 Gm Premix) 100 ml @ 200 mls/hr Q6HR IV 02/28/17 00:00 03/02/17 05:54 Amiodarone HCl (Cordarone) 200 mg DAILY PO 02/28/17 09:00 03/02/17 08:44 Amlodipine Besylate (Norvasc) 10 mg DAILY PO 02/28/17 09:00 03/02/17 08:44 Atorvastatin Calcium (Lipitor) 10 mg HS PO 02/27/17 21:00 03/01/17 21:35 Levothyroxine Sodium (Synthroid) 125 mcg DAILY@06 PO 02/28/17 06:00 03/02/17 05:54 Losartan Potassium (Cozaar) 100 mg DAILY PO 02/28/17 09:00 03/02/17 08:44 Metoprolol Tartrate (Lopressor) 25 mg BID PO 02/27/17 21:00 03/02/17 08:44 Aspirin (Ecotrin Ec) 81 mg DAILY PO 02/28/17 09:00 03/02/17 08:44 Metronidazole (Flagyl) 500 mg Q8HR PO 02/28/17 17:30 03/02/17 05:54 Simethicone 80 mg 80 mg PCHS PRN CHEW bloating 03/01/17 10:30 03/01/17 21:41 Levofloxacin/ Dextrose (Levaquin 750 Mg Premix Inj) 150 ml @ 100 mls/hr Q24H IV 03/01/17 23:00 03/01/17 23:52 A/P Problem List: (1) Sepsis ICD Code: A41.9 (2) C. difficile colitis ICD Code: A04.7 (3) Fever ICD Code: R50.9 Assessment and Plan Assessment and Plan 71 years old male admitted with C Diff colitis and sepsis with fevers. C. Diff Colitis Sepsis Fever Improving on treatments Given no evidence of pneumonia on repeat chest x-ray, Levaquin and Zosyn are discontinued Continue PO Flagyl Follow for resolution of fevers Anemia May be dilutional Iron studies are borderline low and may be reactive or dilution related Stool occult blood testing CKD Follow renal function Hx of Tachycardia NOS Lopressor Amiodarone CAD Hx of Stent Continue Plavix Follow clinically DM2 Insulin Sliding Scale Follow blood sugars Diabetic Diet PO treatments on hold Hyperlipidemia Statin Follow as an outpatient HTN Lisinopril Follow BP HCTZ on hold for recent lactic acidosis and dehydration DVT Prophylaxis Heparin SCDs Luis Manuel Carmichael MD March 02, 2017 11:09
[2017-03-02] MEDS: SIMETHICONE 80 MG CHEWABLE TAB CHEW PRN (18:11)
[2017-03-02] MEDS: ACETAMINOPHEN 325 MG TAB PO PRN (20:00)
[2017-03-02] MEDS: INSULIN HUMAN NPH 1,000 UNITS/10 ML VIAL SQ SCH (21:27)
[2017-03-02] MEDS: ATORVASTATIN 10 MG TAB PO SCH (21:34)
[2017-03-03] VITALS (9 sets, daily range): BP systolic 133–158; BP diastolic 74–98; PULSE 72–113; RESP 18–24; TEMP 96.3–99.2; O2SAT 86–97
[2017-03-03] MEDS: RESP: ALBUTEROL 2.5 MG/IPRATROPIUM 0.5 MG NEB (SCH) NEB ×5 (03:15→21:10)
[2017-03-03] MEDS ORDERED: ACETAMINOPHEN 325 MG TAB PO ONE (04:00)
[2017-03-03] MEDS: SIMETHICONE 80 MG CHEWABLE TAB CHEW PRN (04:06)
[2017-03-03] MEDS: LEVOTHYROXINE SODIUM 125 MCG TAB PO SCH (06:17)
[2017-03-03] MEDS: metroNIDAZOLE 500 MG TAB PO SCH ×3 (06:17→21:17)
[2017-03-03 07:39] LABS: HEMATOCRIT 40.2 % (39.0-51.0); MEAN CELL VOLUME 87.1 FL (80.0-100.0); MEAN CORPUSCULAR HEMOGLOBIN 28.6 PG (27.0-34.0); MEAN CORPUSCULAR HGB CONC 32.9 % (32.0-36.0); PLATELET COUNT 312 TH/MM3 (150-450); RED BLOOD COUNT 4.61 MIL/MM3 (4.50-5.90); RED CELL DISTRIBUTION WIDTH 13.6 % (11.6-17.2); REVIEW FLAG FINAL; WHITE BLOOD COUNT 11.5 TH/MM3 (4.0-11.0)
[2017-03-03 07:55] LABS: BICARBONATE 22.9 MEQ/L (21.0-32.0)
[2017-03-03 07:58] LABS: POTASSIUM 2.7 MEQ/L (3.5-5.1)
[2017-03-03] MEDS ORDERED: POTASSIUM CHLORIDE 10 MEQ CONTROLLED RELEASE TAB PO ONE (09:00)
[2017-03-03] MEDS: ASPIRIN EC 81 MG TABEC PO SCH (09:42)
[2017-03-03] MEDS: LOSARTAN 50 MG TAB PO SCH (09:42)
[2017-03-03] MEDS: AMIODARONE 200 MG TAB PO SCH (09:42)
[2017-03-03] MEDS: METOPROLOL TARTRATE 25 MG TAB PO SCH ×2 (09:42→21:16)
[2017-03-03] MEDS: INSULIN NovoLIN REGULAR SUPPLEMENTAL SCALE SQ SCH ×4 (09:52→21:14)
[2017-03-03] MEDS ORDERED: DOXYCYCLINE HYCLATE 100 MG TAB PO ONE (10:00)
--- NOTE | 2017-03-03 15:14 | RADHPO ---
EXAM DATE/TIME: 03/03/2017 14:49 [facility] COMPARISON: CHEST PA & LAT, December 14, 2016, 8:34. INDICATIONS : Patient has had a cough since yesterday. MEDICAL HISTORY : Cardiovascular disease. Hypertension. Carcinoma, prostate.Diabetes. SURGICAL HISTORY : Prostatectomy. Coronary artery stent.Ventral hernia repair. ENCOUNTER: Subsequent ACUITY: 4 - 6 days PAIN SCORE: 0/10 LOCATION: Bilateral chest FINDINGS: The cardiac silhouette is enlarged in transverse diameter. There is prominence of the aortic knob is with calcification characteristic of atherosclerotic vascular disease. There is prominence of the paul tral pulmonary vasculature with indistinct vascular margins compatible with vascular congestion but n o evidence of overt failure. Small bilateral pleural effusions are identified. CONCLUSION: Cardiomegaly and findings of vascular congestion without overt failure. Lalo Marsh MD on March 03, 2017 at 15:11 Board Certified Radiologist. This report was verified electronically.
[2017-03-03] MEDS ORDERED: INSULIN HUMAN NPH 1,000 UNITS/10 ML VIAL SQ SCH (17:00)
--- NOTE | 2017-03-03 17:06 | HHI.PR ---
Subjective Remarks Fever overnight. Tmax is 101.2F. Diarrhea is resolved. Soft stools remain. GI complaints (bloating) and headache. Nocturnal fevers and night sweats may suggest a co-infection of a tick-bourne illness. Repeat chest x-ray confirms no pneumonia. Objective Vital Signs Date Time Temp Pulse Resp B/P Pulse Ox O2 Delivery O2 Flow Rate FiO2 03/03/17 12:23 97.5 113 18 133/86 92 03/03/17 10:09 97 Nasal Cannula 3.00 03/03/17 08:40 98.3 113 19 158/98 95 03/03/17 00:00 99.0 72 20 142/74 93 03/02/17 21:20 92 Nasal Cannula 3.00 03/02/17 20:00 101.2 86 22 161/82 91 I/O 03/02/17 03/02/17 03/02/17 03/03/17 03/03/17 03/03/17 07:00 15:00 23:00 07:00 15:00 23:00 Intake Total 365 ml 923 ml 240 ml 240 ml Output Total 400 ml 900 ml 700 ml 500 ml Balance -35 ml 23 ml -460 ml -260 ml Intake Oral 365 ml 620 ml 240 ml 240 ml IV Total 303 ml Output Urine Total 400 ml 900 ml 700 ml 500 ml # Bowel Movements 1 0 2 Result Diagram: 03/03/17 0530 03/03/17 1406 Objective Remarks GENERAL: NAD, A&Ox3 SKIN: Warm and dry. HEAD: Normocephalic. EYES: No scleral icterus. No injection or drainage. NECK: Supple, trachea midline. No JVD or lymphadenopathy. CARDIOVASCULAR: Regular rate and rhythm without murmurs, gallops, or rubs. RESPIRATORY: Breath sounds equal bilaterally. No accessory muscle use. GASTROINTESTINAL: Abdomen soft, non-tender, nondistended. MUSCULOSKELETAL: No cyanosis, or edema. BACK: Nontender without obvious deformity. No CVA tenderness. A/P Problem List: (1) Sepsis ICD Code: A41.9 (2) C. difficile colitis ICD Code: A04.7 (3) Fever ICD Code: R50.9 Assessment and Plan Assessment and Plan 71 years old male admitted with C Diff colitis and sepsis with fevers. Doxycycline started for nocturnal fevers and night sweats. Fevers should resolve prior to discharge and have not yet resolved. C. Diff Colitis Sepsis Fever Improving on treatments Given no evidence of pneumonia on repeat chest x-ray, Levaquin and Zosyn are discontinued Continue PO Flagyl Follow for resolution of fevers Anemia May be dilutional Iron studies are borderline low and may be reactive or dilution related Stool occult blood testing CKD Follow renal function Hx of Tachycardia NOS Lopressor Amiodarone CAD Hx of Stent Continue Plavix Follow clinically DM2 Insulin Sliding Scale Follow blood sugars Diabetic Diet PO treatments on hold Hyperlipidemia Statin Follow as an outpatient HTN Lisinopril Follow BP HCTZ on hold for recent lactic acidosis and dehydration DVT Prophylaxis Heparin SCDs Luis Manuel Carmichael MD March 03, 2017 17:06
[2017-03-03] MEDS: INSULIN HUMAN NPH 1,000 UNITS/10 ML VIAL SQ SCH (21:15)
[2017-03-03] MEDS: ATORVASTATIN 10 MG TAB PO SCH (21:16)
[2017-03-03] MEDS: DOXYCYCLINE HYCLATE 100 MG CAP PO SCH (21:16)
[2017-03-03] MEDS: ACETAMINOPHEN 325 MG TAB PO PRN (21:17)
[2017-03-04] VITALS: BP 136/72; PULSE 77; RESP 20; TEMP 99.8; O2SAT 92
[2017-03-04] MEDS: RESP: ALBUTEROL 2.5 MG/IPRATROPIUM 0.5 MG NEB (SCH) NEB ×2 (03:15→09:44)
[2017-03-04] MEDS: metroNIDAZOLE 500 MG TAB PO SCH (05:58)
[2017-03-04] MEDS: LEVOTHYROXINE SODIUM 125 MCG TAB PO SCH (05:58)
[2017-03-04 07:34] LABS: POTASSIUM 3.6 MEQ/L (3.5-5.1)
[2017-03-04 07:44] LABS: BICARBONATE 24.4 MEQ/L (21.0-32.0)
[2017-03-04] MEDS ORDERED: INSULIN HUMAN NPH 1,000 UNITS/10 ML VIAL SQ SCH (08:00)
[2017-03-04] MEDS ORDERED: DOXY100C PO (08:56)
[2017-03-04] MEDS ORDERED: METR-1 PO (08:56)
[2017-03-04] MEDS ORDERED: LACTTAB8 PO (08:56)
[2017-03-04] MEDS: LOSARTAN 50 MG TAB PO SCH (09:40)
[2017-03-04] MEDS: METOPROLOL TARTRATE 25 MG TAB PO SCH (09:41)
[2017-03-04] MEDS: DOXYCYCLINE HYCLATE 100 MG CAP PO SCH (09:41)
[2017-03-04] MEDS: AMIODARONE 200 MG TAB PO SCH (09:41)
[2017-03-04] MEDS: ASPIRIN EC 81 MG TABEC PO SCH (09:41)
[2017-03-04] MEDS: INSULIN NovoLIN REGULAR SUPPLEMENTAL SCALE SQ SCH (09:47)
[2017-03-04 09:56] VITALS: O2SAT 93
--- NOTE | 2017-03-04 10:36 | HHI.DS ---
Discharge Summary Admission Date February 27, 2017 at 18:13 Discharge Date: March 04, 2017 Admitting Diagnosis SEPSIS, GASTROENTERITIS (1) C. difficile colitis ICD Code: A04.7 Diagnosis: Principal (2) Sepsis ICD Code: A41.9 Diagnosis: Principal (3) Fever ICD Code: R50.9 Diagnosis: Principal (4) Tick borne fever ICD Code: A93.8 Diagnosis: Principal Procedures none Brief History - From Admission 71 years old male with history of diabetes mellitus tachycardia skin melanoma and prostate cancer all status post surgery, presented to the ED complaining of one-day history of worsening diarrhea and vomiting and fever, the patient was found to have a fever of 103 measured in the ED, lactic acid was 2.1, with leukocytosis of 14,000 and left shift bandemia. Patient also have increased creatinine to 1.5 mostly chronic kidney disease diabetic nephropathy. He has a history of tachycardia he is on metoprolol and Coreg, also is on a statin aspirin. Patient started to have worsening watery diarrhea with 10 times of vomiting all kind of bile color. No abdominal pain no history of dining out patient had ham sandwich, [place], at home. Patient mentioned history of episode of nausea and diarrhea when he started big toes in October but this time is a lot worse and with fever. Patient had diabetes about 12 years ago and he is the only one in his family he has a coronary artery disease with 3 stents. Patient also had umbilical hernia repair by Dr. Farah in December of this year. No chest pain no sore throat no nasal congestion no dysuria urgency or frequency CBC/BMP: 03/03/17 0530 03/04/17 0645 Significant Findings Laboratory Tests Test 03/01/17 03/02/17 03/03/17 03/04/17 13:21 06:30 05:30 06:45 Blood Urea Nitrogen 19 MG/DL (7-18) Estimat Glomerular Filtration 54 ML/MIN (>89) 54 ML/MIN (>89) 54 ML/MIN (>89) 60 ML/MIN (>89) Rate Random Glucose 223 MG/DL 214 MG/DL 262 MG/DL 211 MG/DL (74-106) (74-106) (74-106) (74-106) Calcium Level 8.4 MG/DL 7.8 MG/DL (8.5-10.1) (8.5-10.1) White Blood Count 11.5 TH/MM3 (4.0-11.0) Erythrocyte Sedimentation Rate 34 mm/hr (0-20) Potassium Level 2.7 MEQ/L (3.5-5.1) PE at Discharge GENERAL: NAD, A&Ox3 SKIN: Warm and dry. HEAD: Normocephalic. EYES: No scleral icterus. No injection or drainage. NECK: Supple, trachea midline. No JVD or lymphadenopathy. CARDIOVASCULAR: Regular rate and rhythm without murmurs, gallops, or rubs. RESPIRATORY: Breath sounds equal bilaterally. No accessory muscle use. GASTROINTESTINAL: Abdomen soft, non-tender, nondistended. MUSCULOSKELETAL: No cyanosis, or edema. Hospital Course Mr. Morelos is a 71 year old male, admitted with diarrhea and fever. Etiology for his diarrhea was found to be related to C. difficile colitis. She also had tested positive for [place]. Initial suspicion for pneumonia was not found on follow-up x-rays but fevers had persisted despite treatment with Zosyn and Levaquin. He was changed to doxycycline for suspected tick-borne fever (he spends a lot of time outdoors, and was having night sweats and nocturnal fevers) . Fevers resolved on doxycycline. Last night he has not had a fever and has not been fever free for greater than 24 hours. Stools are solid now frequency has decreased. He is medically stable for discharge. Treatment and discharge will be doxycycline for 5 days, Flagyl for 10 more days, and probiotics for 20 days. Pt Condition on Discharge: Stable Discharge Disposition: Discharge Home Discharge Time: <= 30 minutes Discharge Instructions DIET: Follow Instructions for: Diabetic Diet Activities you can perform: Regular-No Restrictions Follow up Referrals: PCP Follow-up - 1 Week New Medications: Doxycycline Hyclate (Doxycycline Hyclate) 100 Mg Cap 100 MG PO BID Infection #10 Ref 0 CAP Lactobacillus Acidophilus (Lactobacillus Acidophilus) 1 Tab Tab 2 TAB PO TIDAC Nutritional Supplement #60 Ref 0 TAB Metronidazole (Flagyl) 500 Mg Tab 500 MG PO TID Infection #30 Ref 0 TAB Continued Medications: Amiodarone (Amiodarone) 200 Mg Tab 200 MG PO DAILY Regulate Heart Beat #30 Ref 0 TAB Amlodipine (Amlodipine) 10 Mg Tab 10 MG PO DAILY Blood Pressure Management #30 Ref [address] (Aspirin 81) 81 Mg Tabdr 81 MG PO DAILY Ref 0 TAB Atorvastatin (Atorvastatin) 10 Mg Tab 10 MG PO HS Cholesterol Management #30 Ref 0 TAB Coenzyme Q10 (Ubidecarenone) (Coq-10) 100 Mg Cap 100 MG PO DAILY Glimepiride (Glimepiride) 4 Mg Tab 4 MG PO BIDAC Blood Sugar Management #60 Ref 0 TAB Hydrochlorothiazide (Hydrochlorothiazide) 25 Mg Tab 25 MG PO HS #30 Ref 0 TAB Insulin Human NPH Inj (Novolin N Inj) 1,000 Unit/10 Ml Vial 16 UNITS SQ HS Blood Sugar Management #10 Ref 0 ML Levothyroxine (Levothyroxine) 125 Mcg Tab 125 MCG PO DAILY Thyroid #30 Ref 0 TAB Liraglutide Inj (Victoza Inj) 18 Mg/3 Ml Pen 1.8 MG SQ DAILY #1 Ref 0 PEN Losartan (Losartan) 100 Mg Tab 100 MG PO DAILY Blood Pressure Management #30 Ref 0 TAB Metformin ER (Metformin ER) 1,000 Mg [place] 1000 MG PO BID With evening meal Blood Sugar Management #30 Ref 0 TAB Metoprolol Tartrate (Metoprolol Tartrate) 25 Mg Tab 25 MG PO BID #60 Ref 0 TAB Multiple Vitamins W/ Minerals (Multivitamin Adults) 1 Tab 1 TAB PO DAILY Nutritional Supplement Ref 0 TAB Luis Manuel Carmichael MD March 04, 2017 10:36
== END 2017-03-04 10:24 | disposition home or self-care (01) | DRG 872 ==
LOC: PHED 16:15 → PHEDA 18:13 → PH3A 19:47
PROVIDERS: ADMIT Hospitalist; ATTEND Hospitalist
DX: A41.9 Sepsis, unspecified organism (principal); A04.7 Enterocolitis due to Clostridium difficile; E87.2 Acidosis; E11.21 Type 2 diabetes mellitus with diabetic nephropathy; E11.22 Type 2 diabetes mellitus with diabetic chronic kidney disease; N18.3 Chronic kidney disease, stage 3 (moderate); Z79.4 Long term (current) use of insulin; Z79.84 Long term (current) use of oral hypoglycemic drugs; Z85.820 Personal history of malignant melanoma of skin; Z79.82 Long term (current) use of aspirin; I25.10 Atherosclerotic heart disease of native coronary artery without angina pectoris; Z95.5 Presence of coronary angioplasty implant and graft; Z85.46 Personal history of malignant neoplasm of prostate; E86.0 Dehydration; D64.9 Anemia, unspecified; E78.5 Hyperlipidemia, unspecified; G47.33 Obstructive sleep apnea (adult) (pediatric); E03.9 Hypothyroidism, unspecified; E87.6 Hypokalemia; I10 Essential (primary) hypertension
CPT/HCPCS: 71010; 71020; 74176; 76937; 80048; 80053; 81001; 82272; 82728; 82948; 83540; 83550; 83605; 84132; 84466; 85025; 85027; 85652; 87040; 87205; 87328; 87329; 87493; 87506; 94150; 94640; 94664; 96361; 96374; J1815; J1956; J2405; J2543; J3480; J7030

== ENCOUNTER 2018-04-11 10:59 | Emergency (ER) | payer MEDICARE ==
[~2018-04-11] VITALS: Ht 185.4 cm; Wt 110.2 kg
[~2018-04-11 10:59] MED LIST changes: -ASPI-110 PO; +ASPI1TAB57 PO; +DOXY100C PO; +LACTTAB8 PO; +METR-1 PO
[2018-04-11 11:03] VITALS: BP 180/79; PULSE 64; RESP 14; TEMP 97.6; O2SAT 98
--- NOTE | 2018-04-11 11:17 | PD ---
HPI Chief Complaint: Musculoskeletal Complaint Time Seen by Provider: 11:06 Travel History International Travel<30 days: No Contact w/Intl Traveler<30days: No Traveled to known affect area: No History of Present Illness HPI 72-year-old male here with right fifth toe pain. He believes the toe was dislocated. He reports while rolling over in bed his toe collided with his 's leg and caused immediate pain in the toe. He attempted to reduce the toe unsuccessfully at home. He reports normal sensation and is able to wiggle the toe. Symptom severity is mild. PFSH Past Medical History Hx Anticoagulant Therapy: Yes (ASA 81MG DAILY) Arthritis: No Asthma: No Atrial Fibrillation: Yes Heart Rhythm Problems: No Cancer: Yes (SKIN/REMOVAL OF MELANOMA 2013, prostate) Cardiac Catheterization: Yes Cardiovascular Problems: Yes (TACHYCARDIA, HTN, CHOL) High Cholesterol: Yes Chest Pain: No Congestive Heart Failure: No COPD: No Cerebrovascular Accident: No Diabetes: Yes Diminished Hearing: No Endocrine: Yes Gastrointestinal Disorders: No GERD: Yes Genitourinary: Yes (PROSTATE REMOVED) Headaches: No Hepatitis: No Hiatal Hernia: No Hypertension: Yes Immune Disorder: No Kidney Stones: No Musculoskeletal: Yes (L5-S1 FUSION, RIGHT INDEX FINGER AMPUTATION ) Neurologic: No Psychiatric: No Reproductive: No Respiratory: Yes (SLEEP APNEA-USES CPAP) Immunizations Current: Yes Migraines: No Myocardial Infarction: No Renal Failure: No Seizures: No Sleep Apnea: Yes (PT HAS CPAP MACHINE FOR NIGHT TIME ) Thyroid Disease: Yes (HYPOTYHROIDISM) Ulcer: No Past Surgical History Abdominal Surgery: No AICD: No Appendectomy: No Body Medical Devices: CARDIAC STENTS X 3 Cardiac Surgery: No Cholecystectomy: No Coronary Stent: Yes (X2) Ear Surgery: No Endocrine Surgery: No Eye Surgery: Yes (CATARACTS REMOVED) Genitourinary Surgery: Yes (PROSTATE REMOVED) Gynecologic Surgery: No Joint Replacement: No Neurologic Surgery: No Oral Surgery: Yes (T/A) Pacemaker: No Prostatectomy: Yes Thoracic Surgery: No Tonsillectomy: Yes (W/ADNOIDECTOMY) Other Surgery: Yes (melanoma and other skin cancers removed) Social History Alcohol Use: Yes (ONCE EVERY 2 MONTHS) Tobacco Use: No (QUIT 50YRS AGO) Substance Use: No Allergies-Medications (Allergen,Severity, Reaction): Coded Allergies: No Known Allergies (Verified Adverse Reaction, Unknown, 04/11/18) Reported Meds & Prescriptions Reported Meds & Active Scripts Active Lactobacillus Acidophilus 1 Tab Tab 2 Tab PO TIDAC Reported Victoza Inj (Liraglutide Inj) 18 Mg/3 Ml Pen 1.8 Mg SQ DAILY Multivitamin Adults (Multiple Vitamins W/ Minerals) 1 Tab 1 Tab PO DAILY Aspirin 81 (Aspirin) 81 Mg Tabdr 81 Mg PO DAILY Hydrochlorothiazide 25 Mg Tab 25 Mg PO HS Glimepiride 4 Mg Tab 4 Mg PO BIDAC Amiodarone (Amiodarone HCl) 200 Mg Tab 200 Mg PO DAILY Losartan (Losartan Potassium) 100 Mg Tab 100 Mg PO DAILY Levothyroxine (Levothyroxine Sodium) 125 Mcg Tab 125 Mcg PO DAILY Amlodipine (Amlodipine Besylate) 10 Mg Tab 10 Mg PO DAILY Metoprolol Tartrate 25 Mg Tab 25 Mg PO BID Atorvastatin (Atorvastatin Calcium) 10 Mg Tab 10 Mg PO HS Metformin ER (Metformin HCl) 1,000 Mg León 1,000 Mg PO BID With evening meal Novolin N Inj (Insulin Human NPH) 1,000 Unit/10 Ml Vial 16 Units SQ HS Review of Systems Except as stated in HPI: all other systems reviewed are Neg General / Constitutional: No: Fever Eyes: No: Visual changes HENT: No: Headaches Cardiovascular: No: Chest Pain or Discomfort Respiratory: No: Shortness of Breath Gastrointestinal: No: Abdominal Pain Physical Exam Narrative GENERAL: Alert and well-appearing 72-year-old male SKIN: Warm and dry. HEAD: Normocephalic. EYES: No injection or drainage. NECK: Supple MUSCULOSKELETAL: No cyanosis, or edema. Right foot: Mild deformity noted to the right toe. Cap refill intact. Sensation intact. Data Data Last Documented VS Vital Signs Date Time Temp Pulse Resp B/P (MAP) Pulse Ox O2 Delivery O2 Flow Rate FiO2 04/11/18 11:03 97.6 64 14 180/79 (112) 98 Orders Orders Toe (Min 2vws) (04/11/18 ) Toe (Min 2vws) (04/11/18 ) Ed Discharge Order (04/11/18 12:22) MDM Medical Decision Making Medical Screen Exam Complete: Yes Emergency Medical Condition: Yes Differential Diagnosis Toe dislocation, toe sprain, fracture Narrative Course 72-year-old male here with right toe pain and concern of dislocation. He has dislocated the toe multiple times in the past. Reduction performed without anesthesia per patient request. Using traction the middle phalanx moved back into place. He tolerated procedure well. Sensation to light touch and cap refill intact post reduction. X-ray: Reveal slight lateral subluxation of the middle phalanx, no fracture Postreduction x-ray: Evaluated by me reveals reduction normal alignment Diagnosis Primary Impression: Toe dislocation Qualified Codes: S93.104A - Unspecified dislocation of right toe(s), initial encounter Referrals: [facility] Transport [facility]anner Primary Care Physician Additional Instructions: Naveen wrap toe as directed. Disposition: 01 DISCHARGE HOME Condition: Stable Bess Hameed Apr 11, 2018 11:17
--- NOTE | 2018-04-11 11:38 | RADRPT ---
EXAM DATE: 04/11/2018 11:33 AM EDT AGE/SEX: 72 years / Male INDICATIONS: Right 5th toe dislocation/pain after colliding with last night. Patient states he attempted to reduce it himself. CLINICAL DATA: This is the patient's initial encounter. Patient reports that signs and symptoms have been present for 1 day and indicates a pain score of 6/10. MEDICAL/SURGICAL HISTORY: Hypothyroidism. Diabetes. Hypercholesterolemia. Hypertension. Tach ycardia. A-fib. GERD. Tonsillectomy. Prostatectomy. Fusion, lumbar. Cardiac stent. COMPARISON: No prior exams available for comparison. FINDINGS: 3 views of the right foot fifth digit demonstrate no fracture or dislocation. There is slight lateral subluxation of the middle phalanx in relationship to the distal aspect of the proximal phalanx. No s oft tissue abnormality or radiopaque foreign body is identified. Lisfranc joint appears intact. There is arterial vascular calcification in the small vessels of the foot. CONCLUSION: 1. Slight lateral subluxation of the fifth digit middle phalanx in relationship to the proximal phal anx. However, no fracture or dislocation is present. 2. Small vessel arterial vascular calcification in a pattern typically seen in diabetic patients. Electronically signed by: Shayan Foote MD 04/11/2018 11:37 AM EDT
--- NOTE | 2018-04-11 12:29 | RADRPT ---
EXAM DATE: 04/11/2018 12:19 PM EDT AGE/SEX: 72 years / Male INDICATIONS: Post reduction right 5th toe. CLINICAL DATA: This is the patient's subsequent encounter. Patient reports that signs and symptoms h ave been present for 1 day and indicates a pain score of 0/10. MEDICAL/SURGICAL HISTORY: . Hypothyroidism. Diabetes. Hypercholesterolemia. Hypertension. Tach ycardia. A-fib. GERD. Tonsillectomy. Prostatectomy. Fusion, lumbar. Cardiac stent. . Tonsillectomy. Prostatectomy. Fusion, lumbar. Cardiac stent. COMPARISON: [facility], TOE RIGHT 5TH DIGIT(MIN 2VWS), 04/11/2018. . FINDINGS: Bony structures are intact and in normal alignment. Joints are intact without dislocation or signifi cant arthropathy. Osseous density is normal. Soft tissues are unremarkable. No radiopaque foreign bodies seen. CONCLUSION: Previous lateral subluxation at the proximal interphalangeal joint of the fifth toe has been reduced. No acute fracture or dislocation on the current exam. Electronically signed by: Adam Becerril MD 04/11/2018 12:27 PM EDT
== END 2018-04-11 12:34 | disposition home or self-care (01) ==
LOC: PHEFT 10:59
DX: S93.134A Subluxation of interphalangeal joint of right lesser toe(s), initial encounter (principal); W51.XXXA Accidental striking against or bumped into by another person, initial encounter; Y93.89 Activity, other specified
CPT/HCPCS: 28660; 73660